=== PATIENT | female | born 1990 | race African-American/Black ===

== ENCOUNTER 2018-12-01 10:15 | Observation (INO) | payer BC, MEDICAID ==
[~2018-12-01] VITALS: Ht 165.1 cm; Wt 119.7 kg
[2018-12-01] MEDS ORDERED: PREN27TA7 OR (11:07)
[2018-12-01 11:49] LABS: Basophils # (auto) 0 uL; Basophils % (auto) 0.5 % (0.0-2.0); Eosinophils # (auto) 0.1 uL; Eosinophils % (auto) 1.1 % (0.0-7.0); Hematocrit 35.7 % (36.0-46.0); Lymphocytes # (auto) 1.8 uL; Lymphocytes % (auto) 30.9 % (10.0-50.0); Mean Corpuscular Hemoglobin 31.4 pg (28.0-32.0); Mean Corpuscular Hgb Conc. 33.6 g/dL (32.0-36.0); Mean Corpuscular Volume 93.3 fL (80.0-100.0); Monocytes # (auto) 0.6 uL; Monocytes % (auto) 11.1 % (0.0-12.0); Neutrophils # (auto) 3.3 uL; Neutrophils % (auto) 56.4 % (37.0-80.0); Nucleated Red Blood Cells % 0.1 %; Platelet Count (auto) 94 10^3/uL (140-450); Red Blood Cells 3.82 10^6/uL (4.0-5.20); Red Cell Distribution Width 14.4 % (11.8-14.3); White Blood Cell 5.8 10^3/uL (4.4-10.8)
[2018-12-01 12:08] LABS: INR < 0.93 (0.9-1.15); Partial Thromboplastin Time 25.8 sec (23.64-32.05)
[2018-12-01 12:23] LABS: Urine Bacteria FEW /hpf (None Seen); Urine Blood Negative /uL (Negative); Urine Mucus FEW (None Seen); Urine Specific Gravity 1.025 (1.001-1.035); Urine WBC 1 /hpf (0 - 5)
[2018-12-01 12:29] LABS: Potassium 3.4 mmol/L (3.5-5.1)
[2018-12-01 12:36] LABS: Albumin 2.9 g/dL (3.4-5.0); BUN/Creatinine Ratio 8.3; Calcium 8.7 mg/dL (8.5-10.1)
[2018-12-01 12:39] LABS: Bilirubin, Total 0.4 mg/dL (0.2-1.0)
== END 2018-12-01 11:25 | disposition home or self-care (01) | DRG 566 ==
LOC: LDRP 10:15
PROVIDERS: ADMIT Obstetrics & Gynecology; ATTEND Obstetrics & Gynecology
DX: O13.3 Gestational [pregnancy-induced] hypertension without significant proteinuria, third trimester (principal); Z3A.32 32 weeks gestation of pregnancy
CPT/HCPCS: 36415; 59025; 80053; 81001; 81002; 84550; 85025; 85610; 85730; G0378

== ENCOUNTER 2019-01-19 04:10 | Inpatient (IN) | payer MEDICAID ==
[~2019-01-19] VITALS: Ht 165.1 cm; Wt 122.9 kg
[2019-01-19] VITALS (13 sets, daily range): BP systolic 90–142; BP diastolic 50–90
[~2019-01-19 04:10] MED LIST: PREN27TA7 OR
[2019-01-19] MEDS: LACTATED RINGER'S 1,000 ML IV SCH ×2 (04:46→12:30)
[2019-01-19 05:15] LABS: Basophils # (auto) 0 uL; Basophils % (auto) 0.7 % (0.0-2.0); Eosinophils # (auto) 0.1 uL; Eosinophils % (auto) 2.3 % (0.0-7.0); Hematocrit 35.6 % (36.0-46.0); Lymphocytes # (auto) 2.4 uL; Lymphocytes % (auto) 39.7 % (10.0-50.0); Mean Corpuscular Hemoglobin 31.9 pg (28.0-32.0); Mean Corpuscular Hgb Conc. 33.8 g/dL (32.0-36.0); Mean Corpuscular Volume 94.5 fL (80.0-100.0); Monocytes # (auto) 0.7 uL; Monocytes % (auto) 11.6 % (0.0-12.0); Neutrophils # (auto) 2.8 uL; Neutrophils % (auto) 45.7 % (37.0-80.0); Nucleated Red Blood Cells % 0.1 %; Platelet Count (auto) 106 10^3/uL (140-450); Red Blood Cells 3.77 10^6/uL (4.0-5.20); White Blood Cell 6.2 10^3/uL (4.4-10.8)
[2019-01-19 05:26] LABS: INR < 0.93 (0.9-1.15); Partial Thromboplastin Time 27.8 sec (23.64-32.05)
[2019-01-19 05:34] LABS: Albumin 2.6 g/dL (3.4-5.0); Calcium 8.3 mg/dL (8.5-10.1); Potassium 3.1 mmol/L (3.5-5.1)
[2019-01-19 05:37] LABS: Alcohol, Urine < 3.0 mg/dL (0-5); Amphetamine Screen, Urine NEGATIVE (NEGATIVE); Barbiturate Scree,Urine NEGATIVE (NEGATIVE); Benzodiazephine Screen, Urine NEGATIVE (NEGATIVE); Cannabinoid Screen, Urine NEGATIVE (NEGATIVE); Cocaine Screen, Urine NEGATIVE (NEGATIVE); Opiate Scree,Urine NEGATIVE (NEGATIVE); Phencyclidine Screen, Urine NEGATIVE (NEGATIVE)
[2019-01-19 05:38] LABS: BUN/Creatinine Ratio 9.4
[2019-01-19 05:41] LABS: Bilirubin, Total 0.4 mg/dL (0.2-1.0); Total Protein 6.8 g/dL (6.4-8.2)
[2019-01-19 05:53] LABS: Urine Bacteria FEW /hpf (None Seen); Urine Blood Negative /uL (Negative); Urine Mucus FEW (None Seen); Urine Specific Gravity 1.016 (1.001-1.035); Urine WBC 5 /hpf (0 - 5)
[2019-01-19] MEDS ORDERED: MORPHINE SULF(PF) 0.5MG/ML 10ML VIAL ONE (09:23)
[2019-01-19] MEDS ORDERED: MIDAZOLAM HCL 1MG/1ML-2 ML VIAL ONE (09:23)
[2019-01-19] MEDS ORDERED: fentaNYL CITRATE 100 MCG/2 ML VL ONE (09:23)
[2019-01-19] MEDS ORDERED: PHENYLEPHRINE HCL 10 MG/ML VL IV ONE (09:34)
[2019-01-19] MEDS ORDERED: OXYTOCIN 10 UNIT/ML 10ML VIAL ONE (09:46)
[2019-01-19] MEDS ORDERED: ceFAZolin 1GM VL ONE (09:46)
[2019-01-19] MEDS ORDERED: LACT. RINGERS/OXYTOCIN 20UNITS 1,000 ML IV SCH (10:25)
[2019-01-19] MEDS ORDERED: ceFAZolin 1GM/50ML 50 ML IV SCH (10:30)
[2019-01-19] MEDS ORDERED: NALBUPHINE HCL 10 MG/1ml INJECTION SUBCUT ONE (10:45)
[2019-01-19] MEDS ORDERED: LABETALOL HCL 5 MG/ML 4ML SYRINGE IV PRN (10:45)
[2019-01-19] MEDS ORDERED: ONDANSETRON HCL 4 MG/2 ML VIAL IV PRN (10:45)
[2019-01-19] MEDS ORDERED: MIDAZOLAM HCL 1MG/1ML-2 ML VIAL IV PRN (10:45)
[2019-01-19] MEDS ORDERED: ePHEDrine SULFATE 50 MG/ML AMP IV PRN (10:45)
[2019-01-19] MEDS ORDERED: DexAMETHasone SOD PHOS 10MG/1ML VIAL INJ IV PRN (10:45)
[2019-01-19] MEDS ORDERED: diphenhdrAMINE HCL 50 MG/1 ML VL IV PRN (10:45)
[2019-01-19] MEDS ORDERED: NALOXONE HCL 0.4 MG/ML VIAL IV PRN (10:45)
[2019-01-19] MEDS ORDERED: HYDROmorphone HCL 2 MG/ML VL IV PRN (10:45)
[2019-01-19] MEDS ORDERED: OXYTOCIN 10UNIT/ML 1ML VIAL ONE (11:32)
--- NOTE | 2019-01-19 12:05 | NUR ---
Post Op for LDRP: Received patient from PACU via bed to room 8A. Patient A/A/Ox4, abdominal binder and bilateral SCD's are in place, IV fluids placed on pump and infusing per order, incisional site dressing clean/dry/intact and Espinoza Catheter to gravity draining clear yellow urine. Incentive Spirometer at bedside and instruction on proper use with return demonstration done by patient. Updated on plan of care. Call light in reach. Sd rails up x2. Frequent vital sign initiated. See flowsheet. Assessment completed. Fundus at umbilicus with slight right sided deviation, firm, small amount of lochia.
--- NOTE | 2019-01-19 12:15 | NUR ---
SBAR given to Dayan AVELAR.
[2019-01-19] MEDS: MORPHINE SULFATE 4 MG/ML SYR/VIAL IV PRN ×2 (14:34→19:17)
[2019-01-19] MEDS ORDERED: ACETAMINOPHEN IV 1000 MG/100ML (10MG/ML) IV SCH (14:59)
--- NOTE | 2019-01-19 15:00 | NUR ---
ANN-MARIEAR received from Dayan AVELAR.
[2019-01-19] MEDS: ceFAZolin 1GM/50ML 50 ML IV SCH ×2 (15:29→22:59)
[2019-01-19] MEDS: ACETAMINOPHEN IV 1000 MG/100ML (10MG/ML) IV SCH ×2 (17:03→22:32)
--- NOTE | 2019-01-19 18:50 | NUR ---
physical assessment performed on pt per shift protocol. upon assessment of abd incision dressing, drainage noted. Pericare performed due to lochia being on incision dressing as well. call placed to murali Dial cnm, no answer. awaiting call back for further orders.
[2019-01-19 20:39] LABS: Basophils # (auto) 0 uL; Basophils % (auto) 0.4 % (0.0-2.0); Eosinophils # (auto) 0.1 uL; Eosinophils % (auto) 0.9 % (0.0-7.0); Hematocrit 34.9 % (36.0-46.0); Hemoglobin 11.6 g/dL (12.2-16.2); Lymphocytes # (auto) 2.1 uL; Lymphocytes % (auto) 27.2 % (10.0-50.0); Mean Corpuscular Hemoglobin 31.7 pg (28.0-32.0); Mean Corpuscular Hgb Conc. 33.2 g/dL (32.0-36.0); Mean Corpuscular Volume 95.4 fL (80.0-100.0); Monocytes # (auto) 0.7 uL; Monocytes % (auto) 9.7 % (0.0-12.0); Neutrophils # (auto) 4.7 uL; Neutrophils % (auto) 61.8 % (37.0-80.0); Nucleated Red Blood Cells % 0.1 %; Platelet Count (auto) 96 10^3/uL (140-450); Red Blood Cells 3.66 10^6/uL (4.0-5.20); Red Cell Distribution Width 13.9 % (11.8-14.3); White Blood Cell 7.6 10^3/uL (4.4-10.8)
--- NOTE | 2019-01-19 23:55 | NUR ---
Ambulation: Patient OOB with standby assistance by RN. Patient ambulated hallway x2 with steady gait. Patient remains with salazar in place per physician orders. Pericare teaching provided with returned demonstration by patient. Clean gown provided and bed linen changed. Patient ambulated back to bed with steady gait and no distress noted.
[2019-01-20] VITALS (10 sets, daily range): BP systolic 105–145; BP diastolic 44–90
--- NOTE | 2019-01-20 01:30 | NUR ---
dressing removed from incision per protocol. incision site open to air, edges well approximated, cecilia fully intact, no redness, edema, drainage or odor noted from insicion. will continue to monitor.
[2019-01-20] MEDS: ACETAMINOPHEN IV 1000 MG/100ML (10MG/ML) IV SCH ×2 (04:30→18:29)
[2019-01-20 05:06] LABS: RPR Non Reactive (Non Reactive)
[2019-01-20 06:37] LABS: Basophils # (auto) 0 uL; Basophils % (auto) 0.4 % (0.0-2.0); Eosinophils # (auto) 0.1 uL; Eosinophils % (auto) 1.6 % (0.0-7.0); Hematocrit 34.3 % (36.0-46.0); Hemoglobin 11.6 g/dL (12.2-16.2); Lymphocytes # (auto) 1.1 uL; Lymphocytes % (auto) 15.3 % (10.0-50.0); Mean Corpuscular Hemoglobin 31.9 pg (28.0-32.0); Mean Corpuscular Hgb Conc. 33.9 g/dL (32.0-36.0); Mean Corpuscular Volume 94.2 fL (80.0-100.0); Monocytes # (auto) 0.7 uL; Monocytes % (auto) 9.8 % (0.0-12.0); Neutrophils # (auto) 5.1 uL; Neutrophils % (auto) 72.9 % (37.0-80.0); Platelet Count (auto) 103 10^3/uL (140-450); Red Blood Cells 3.64 10^6/uL (4.0-5.20); Red Cell Distribution Width 13.6 % (11.8-14.3); White Blood Cell 6.9 10^3/uL (4.4-10.8)
[2019-01-20] MEDS: ceFAZolin 1GM/50ML 50 ML IV SCH ×3 (06:46→23:37)
[2019-01-20] MEDS ORDERED: LACTATED RINGER'S 1,000 ML IV SCH (08:17)
[2019-01-20] MEDS ORDERED: SIMETHICONE 80 MG CHEWABLE TABLET PO PRN (08:30)
[2019-01-20] MEDS ORDERED: HYDROcodone-ACET 5/325MG TAB PO PRN ×2 (08:30)
[2019-01-20] MEDS: IBUPROFEN 800 MG TAB PO PRN ×2 (10:00→19:17)
[2019-01-20] MEDS: DOCUSATE SOD 100 MG CAP PO SCH ×2 (10:00→22:43)
--- NOTE | 2019-01-20 15:00 | NUR ---
DC'D OFIRMEV PER DOCTOR ZAINA ORDER BUT ITS STILL SHOWING UP IN EMAR. CALLED PHARMACY, THEY STATED THAT TO DOCUMENT THAT IT WAS NOT GIVEN AND IT WILL FALL OFF THE EMAR, THEY WERE NOT ABLE TO TAKE IT OFF ON THEIR END. CHARTED IT WAS NOT GIVEN AND PATIENT DID NOT RECEIVE IT ON MY SHIFT.
--- NOTE | 2019-01-20 21:04 | NUR ---
blood pressures reviewed with Dr Mason, no new orders received, continue with current plan of care.
--- NOTE | 2019-01-20 22:00 | NUR ---
PT AMBULATING UNIT, STEADY GAIT, NO DISTRESS NOTED
[2019-01-21] MEDS ORDERED: TETANUS-DIPTH-ACEL PERTUSSIS 0.5ML SYRG IM ONE (02:45)
[2019-01-21 03:00] VITALS: BP 105/50
[2019-01-21] MEDS: IBUPROFEN 800 MG TAB PO PRN ×3 (04:05→23:05)
--- NOTE | 2019-01-21 07:00 | NUR ---
NOTIFIED DR. KENDRICK OF ALL PTS LAB VALUES, POTASSIUM OF 3.1. ORDERS RECEIVED FROM DR. KENDRICK FOR 40MEQ KLOR CON ONCE, NO NEED FOR REPEAT CBC. READ BACK AND VERIFIED ORDERS. WILL CARRY OUT. Addendum: 01/21/19 at 0711 by Lela Stanford RN NO REPEAT CMP, NOT CBC.
[2019-01-21 07:15] VITALS: BP 126/59
[2019-01-21] MEDS ORDERED: POTASSIUM CHL 20 Meq TABLET PO ONE (07:15)
--- NOTE | 2019-01-21 07:20 | NUR ---
DR. KENDRICK NOTIFIED OF PTS TRENDING VITAL SIGNS, THIS MORNING VITALS ARE 126/59, PULSE 100BPM, RESPIRATIONS 18, O2 SATURATION 975 ON ROOM AIR. ORDERS RECEIVED TO CONTINUE WITH CURRENT PLAN OF CARE. READ BACK AND VERIFIED ORDERS. WILL CARRY OUT.
[2019-01-21] MEDS: ceFAZolin 1GM/50ML 50 ML IV SCH ×3 (07:50→23:04)
[2019-01-21] MEDS: DOCUSATE SOD 100 MG CAP PO SCH ×2 (10:28→23:04)
[2019-01-21 11:00] VITALS: BP 116/67
[2019-01-21 14:50] VITALS: BP 124/54
--- NOTE | 2019-01-21 18:15 | NUR ---
Received report, assumed care.
--- NOTE | 2019-01-21 18:30 | NUR ---
Initiated assessment. MOB areola has open wound from improper latch. MOB is pumping breasts to feed breast milk. MOB was able to pump 10 mL and feed infant, MOB requested formula to supplement until breast heals. Artificial Nipple Education: Teaching: Reviewed information in [employer] booklet with patient. Discussed benefits of and risks associated with not . Discussed different positions, proper latch, feeding cues, and baby-led . Provided information of medication side effects related to . All questions and concerns addressed at this time. Patient verbalized understanding of information, continued to request a bottle to supplement until nipple heals from improper latch.
--- NOTE | 2019-01-21 18:40 | NUR ---
Initiated assessment, reviewed plan of care, discussed goals and pt safety. Pt verbalized understanding. Denies pain, See flow sheet for complete data.
[2019-01-21 19:00] VITALS: BP 122/69
--- NOTE | 2019-01-21 21:45 | NUR ---
Out of bed, ambulating throughout unit. No distress noted.
[2019-01-21 23:00] VITALS: BP 119/69
--- NOTE | 2019-01-21 23:05 | NUR ---
Cluster care provided, 2200 meds, IV antibiotics and VS
--- NOTE | 2019-01-22 00:57 | NUR ---
Report received: assumed care for lunch coverage of stable mother and .
[2019-01-22 03:30] VITALS: BP 115/62
--- NOTE | 2019-01-22 03:51 | NUR ---
ZAHEER Ge at bedside for staple removal. Tolerated well.
[2019-01-22 07:18] VITALS: BP 114/74
--- NOTE | 2019-01-22 07:19 | NUR ---
PTS LEFT NIPPLE IS REDDENED, SKIN APPEARS TO BE RAW AND PT STATES "IT IS SORE AND IRRITATED." PT RE-EDUCATED ON PROPER LATCH TECHNIQUES AND POSITIONS FOR FEEDINGS, ARTIFICIAL NIPPLE SHIELD USE. PT ALSO RE-EDUCATED ON SORE NIPPLE COMFORT MANAGEMENT WITH THE LANOLIN CREAM AND AFTER PUMPING OR USE THE COMFORT GELS. PT VERBALIZES UNDERSTANDING. PT PUMPING AT BEDSIDE AT THIS TIME.
[2019-01-22] MEDS: ceFAZolin 1GM/50ML 50 ML IV SCH (07:33)
--- NOTE | 2019-01-22 07:50 | NUR ---
Teaching Re-educated information in [employer] booklet with patient. Discussed benefits of and risks associated with not . Discussed different positions, proper latch, feeding cues, and baby-led . Provided information of medication side effects related to . All questions and concerns addressed at this time. Patient verbalized understanding of information.
--- NOTE | 2019-01-22 08:40 | NUR ---
IV removal IV DC'd with sterile technique, catheter fully intact. Pressure dressing applied to site. Patient tolerated procedure well. Discharged with aftercare instructions per MD.
--- NOTE | 2019-01-22 08:47 | NUR ---
Discharge: Discharge instructions given as ordered. Pt encouraged to follow up with OXYGEN SYSTEM TESTER as instructed. All questions and concerns addressed. Patient verbalized understanding. Medication reconciliation completed and copy given to patient. All required/requested vaccines given and copies of vaccinations given to patient. Patient encouraged to prepare to depart unit.
--- NOTE | 2019-01-22 09:35 | NUR ---
Discharge: Patient taken to vehicle ambulatory via steady gait, pt declines wheelchair with all personal belongings, accompanied by staff and family member. No distress noted at time of departure, no adverse changes in status since initial assessment.
[2019-01-22] MEDS: DOCUSATE SOD 100 MG CAP PO SCH (10:00)
== END 2019-01-22 09:35 | disposition home or self-care (01) | DRG 540 ==
LOC: LDRP 04:10
PROVIDERS: ADMIT Obstetrics & Gynecology; ATTEND Obstetrics & Gynecology
PROC: 0UL70CZ Occlusion of Bilateral Fallopian Tubes with Extraluminal Device, Open Approach (ICD-10-PCS; 2019-01-19)
PROC: 10D00Z1 Extraction of Products of Conception, Low, Open Approach (ICD-10-PCS; principal; 2019-01-19 09:25)
DX: O99.214 Obesity complicating childbirth (principal); E66.01 Morbid (severe) obesity due to excess calories; O34.211 Maternal care for low transverse scar from previous cesarean delivery; O77.0 Labor and delivery complicated by meconium in amniotic fluid; O99.344 Other mental disorders complicating childbirth; F41.9 Anxiety disorder, unspecified; O99.52 Diseases of the respiratory system complicating childbirth; J44.9 Chronic obstructive pulmonary disease, unspecified; Z37.0 Single live birth; Z30.2 Encounter for sterilization; Z3A.39 39 weeks gestation of pregnancy
CPT/HCPCS: 36415; 51702; 59025; 80053; 80307; 81001; 84112; 85025; 85610; 85730; 86592; 86850; 86900; 86901; 90715; 94762; 96365; 96366; 96375; G0378; J0131; J0690; J2250; J2590